=== PATIENT | female | born 1995 | race African-American/Black ===

== ENCOUNTER 2020-08-19 18:38 | Inpatient (IN) | payer OTHER ==
[~2020-08-19] VITALS: Ht 165.1 cm; Wt 63.8 kg
[2020-08-19] MEDS ORDERED: TRAZ-252 PO (19:02)
[2020-08-19] MEDS ORDERED: SERT-141 PO (19:02)
[2020-08-19] MEDS ORDERED: DULO1CAP4 PO (19:02)
[2020-08-19 19:50] LABS: BASO # 0.1 10^3/uL (0.0-0.2); BASO % 0.5 % (0.0-1.0); EOS % 0.4 % (0.0-3.0); HEMATOCRIT 42.6 % (36.0-47.0); LYMPH # 2.3 10^3/uL (1.5-5.0); LYMPH % 22.5 % (24.0-44.0); MEAN CORPUSCULAR HEMOGLOBIN 29.6 pg (27.0-33.0); MEAN CORPUSCULAR HGB CONC 32.9 g/dl (32.0-36.5); MEAN CORPUSCULAR VOLUME 90.1 fl (80.0-96.0); MONO # 0.9 10^3/uL (0.0-0.8); MONO % 8.4 % (2.0-8.0); NEUTROPHILS # 6.9 10^3/uL (1.5-8.5); NEUTROPHILS % 67.9 % (36.0-66.0); PLATELET COUNT, AUTOMATED 233 10^3/uL (150-450); RED BLOOD COUNT 4.73 10^6/uL (4.00-5.40); WHITE BLOOD COUNT 10.2 10^3/uL (4.0-10.0)
[2020-08-19 20:20] LABS: HCG, SERUM QUALITATIVE NEGATIVE (NEGATIVE)
[2020-08-19 20:54] LABS: AMPHETAMINES LEVEL URINE NEGATIVE (NEGATIVE); BARBITURATES URINE NEGATIVE (NEGATIVE); BENZODIAZEPINES URINE NEGATIVE (NEGATIVE); CANNABINOIDS URINE POSITIVE (NEGATIVE); COCAINE METABOLITE URINE NEGATIVE (NEGATIVE); METHADONE URINE NEGATIVE (NEGATIVE); OPIATES URINE NEGATIVE (NEGATIVE); PHENCYCLIDINE URINE NEGATIVE (NEGATIVE)
[2020-08-19 20:55] LABS: ACETAMINOPHEN LEVEL < 2.0 UG/ML (10.0-30.0); ALBUMIN 4.5 GM/DL (3.2-5.2); ALT/SGPT 18 U/L (12-78); BILIRUBIN,DIRECT 0.2 MG/DL (0.0-0.2); BILIRUBIN,TOTAL 0.5 MG/DL (0.2-1.0); BLOOD UREA NITROGEN 10 MG/DL (7-18); CALCIUM LEVEL 9.8 MG/DL (8.5-10.1); CARBON DIOXIDE LEVEL 25 MEQ/L (21-32); CHLORIDE LEVEL 107 MEQ/L (98-107); CPK CREATINE PHOSPHOKINASE 172 U/L (26-192); CREATININE FOR GFR 0.83 MG/DL (0.55-1.30); ETHYL ALCOHOL (ETHANOL) < 0.003 % (0.000-0.010); GLOMERULAR FILTRATION RATE > 60.0 (>60); GLUCOSE, FASTING 85 MG/DL (70-100); POTASSIUM SERUM 3.8 MEQ/L (3.5-5.1); SALICYLATE LEVEL < 1.7 MG/DL (5.0-30.0); SODIUM LEVEL 139 MEQ/L (136-145); THYROID STIMULATING HORMONE 0.486 uIU/ML (0.358-3.740); TOTAL PROTEIN 8.3 GM/DL (6.4-8.2)
[2020-08-19 21:44] LABS: RSV AMPLIFICATION NEGATIVE (NEGATIVE)
[2020-08-20] MEDS ORDERED: MULTCHW12 PO (03:41)
[2020-08-20] MEDS ORDERED: DULO1CAP4 PO (03:41)
[2020-08-20] MEDS ORDERED: TRAZ-186 PO (03:41)
[2020-08-20] MEDS ORDERED: ACETAMINOPHEN TAB 650MG DOSE (2X325MG) PO PRN (04:05)
[2020-08-20] MEDS ORDERED: MAALOX 30 ML SUSP *UDC PO PRN (04:05)
[2020-08-20] MEDS ORDERED: MOM 30ML SUSPENSION UDC PO PRN (04:05)
--- NOTE | 2020-08-20 04:20 | ECGEPIP ---
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
[2020-08-20 05:32] VITALS: BP 122/78
--- NOTE | 2020-08-20 13:32 | HPEPDOC ---
General Date of Admission August 20, 2020 at 04:03 Date of Service: August 20, 2020 Chief Complaint The patient is a 24-year-old female admitted with a reason for visit of Unspecified Depressive Do. 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 She had overdosed on Duloxetine DR . Took 15 capsules. She has had several deaths in the family recently which has been making her very depressed over the last few days. u tox positive for marijuana. I am seeing the patient for medical history and physical. Patient complains of mild abdominal cramps. Has not had a bowel movement in 2 days. Home Medications Scheduled Duloxetine Hcl (Duloxetine HCl) 20 Mg Capsule.dr, 20 MG PO BID, (Reported) Folic Acid/Multivit-Min/Lutein (Multi-Vitamin Gummies) 1 Each Tab.chew, 2 CHW PO DAILY, (Reported) Scheduled PRN Trazodone HCl (Trazodone HCl) 50 Mg Tablet, 50 MG PO QHS PRN for INSOMNIA, (Reported) Allergies Coded Allergies: Sulfa (Sulfonamide Antibiotics) (Verified Allergy, Intermediate, Hives, 08/19/20) Uncoded Allergies: G6PD (Allergy, Unknown, 08/19/20) Past Medical History Medical History depression anxiety PTSD back pain Scoliosis Adjustment disorder Family History Significant Family History: Cancer, Diabetes, Hypertension Social History * Smoker: Denies Alcohol: Denies Drugs: denies A-FIB/CHADSVASC A-FIB History Current/History of A-Fib/PAF?: No Review of Systems Constitutional: Denies: Chills, Fever, Night Sweats Eyes: Denies: Pain, Vision change ENT: Denies: Head Aches, Ear Pain, Dysphagia Skin: Denies: Rash, Lesions, Breakdown Pulmonary: Denies: Dyspnea, Cough Cardiovascular: Denies: Chest Pain, Palpitations, Orthopnea, Paroxysmal Noc. Dyspnea, Lt Headedness Gastrointestinal: Reports: Abdominal Pain, Constipation Genitourinary: Denies: Dysuria, Frequency, Incontinence, Retention Hematologic: Denies: Bruising, Bleeding Excessively Physical Examination General Exam: Positive: Alert, Cooperative, No Acute Distress Eye Exam: Positive: PERRLA, Conjunctiva & lids normal, EOMI; Negative: Sclera icteric ENT Exam: Positive: Atraumatic, Mucous membr. moist/pink, Pharynx Normal Neck Exam: Positive: Supple; Negative: JVD, thyromegaly Chest Exam: Positive: Clear to auscultation, Normal air movement Heart Exam: Positive: Rate Normal, Regular Rhythm, Normal S1, Normal S2; Negative: Murmurs, Rubs Abdomen Exam: Positive: Normal bowel sounds, Soft; Negative: Tenderness, Hepatospenomegaly Vital Signs Vital Signs Date Time Temp Pulse Resp B/P (MAP) Pulse Ox O2 Delivery O2 Flow Rate FiO2 08/20/20 05:32 97.7 63 16 122/78 (93) 99 Room Air Laboratory Data Labs 24H Laboratory Tests 2 08/19/20 19:34: Immature Granulocyte % (Auto) 0.3, Neutrophils (%) (Auto) 67.9H, Lymphocytes (%) (Auto) 22.5L, Monocytes (%) (Auto) 8.4H, Eosinophils (%) (Auto) 0.4, Basophils (%) (Auto) 0.5, Neutrophils # (Auto) 6.9, Lymphocytes # (Auto) 2.3, Monocytes # (Auto) 0.9H, Eosinophils # (Auto) 0.0, Basophils # (Auto) 0.1, Nucleated Red Blood Cells % (auto) 0.0, Anion Gap 7L, Glomerular Filtration Rate > 60.0, Calcium Level 9.8, Total Bilirubin 0.5, Direct Bilirubin 0.2, Aspartate Amino Transf (AST/SGOT) 16, Alanine Aminotransferase (ALT/SGPT) 18, Alkaline Phosphatase 75, Total Creatine Kinase 172, Total Protein 8.3H, Albumin 4.5, Albumin/Globulin Ratio 1.2, Thyroid Stimulating Hormone (TSH) 0.486, Human Chorionic Gonadotropin, Qual NEGATIVE, Salicylates Level < 1.7L, Urine Opiates Screen NEGATIVE, Urine Methadone Screen NEGATIVE, Acetaminophen Level < 2.0L, Urine Barbiturates Screen NEGATIVE, Urine Phencyclidine Screen NEGATIVE, Urine Amphetamines Screen NEGATIVE, Urine Benzodiazepines Screen NEGATIVE, Urine Cocaine Metabolite Screen NEGATIVE, Urine Cannabinoids Screen POSITIVEH, Ethyl Alcohol Level < 0.003 08/19/20 19:37: Bedside Glucose (Misc Panel) 87 08/19/20 20:59: Coronavirus (COVID-19)(PCR) NEGATIVE, Influenza Type A (RT-PCR) NEGATIVE, I nfluenza Type B (RT-PCR) NEGATIVE, Respiratory Syncytial Virus (PCR) NEGATIVE CBC/BMP Laboratory Tests 08/19/20 19:34 Assessment/Plan 24 year old female admitted to [facility] for unspecified depression. u tox positive for marijuana. I am seeing the patient for medical history and physical. Depression with suicidal gesture as per psychiatry Abdominal cramps likely related to constipation has tylenol and MOM orderd. She had refused it. Plan / VTE VTE Prophylaxis Ordered?: No HASEEB WARNER MD August 20, 2020 13:32
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
[2020-08-20] MEDS ORDERED: hydrOXYzine 50 MG TAB PO PRN (16:45)
[2020-08-20 17:40] VITALS: BP 116/61
[2020-08-20] MEDS: PRAZOSIN 1 MG CAP PO SCH (21:24)
[2020-08-21 06:46] VITALS: BP 119/57
[2020-08-21] MEDS ORDERED: DULoxetine 20 MG CAP (CYMBALTA) PO SCH (09:00)
[2020-08-21 17:52] VITALS: BP 115/64
--- NOTE | 2020-08-21 20:30 | MHIPNPDOC ---
[facility] Progress Note Progress Note DATE OF SERVICE: 08/21/20 HISTORY: Asper previous records: "Patient is a 24 -year-old , female, who reports taking an overdose of 15 Cymbalta as a suicide attempt. She reports being very depressed over grief of several family members over the course of a year. She reports having nightmares of seeing her family members. Per ED Report: Pt is [employer] x 4 years, 1 non-combat deployment to [place], admits to taking about "10-15 of my depression medications" earlier tonight with intention of harming self. Pt is quite, guarded, fair eye contact, admits to feeling "very depressed" for past few days. Pt reports she has had several recent deaths in the family including her Uncle and her Grandmother "who raised me". Pt adds "alot of family stress back home right now", denies any other stressors. Pt reports she took pills and then called family back home who then contacted [facility] M.P.'s. Pt denies prior attempts or psych admissions, admits to hx of PTSD but does not elaborate, denies HI/AH/VH, denies any substance abuse issues. PT denies any family hx of suicide, reports "PTSD" in the family." VITAL SIGNS: See below. NEW TEST RESULTS: See below CURRENT MEDICATIONS: See below. MENTAL STATUS EXAMINATION: General Appearance: well groomed, appears stated age, hospital scrubs/clothing Build: average Demeanor: withdrawn, depressed Eye Contact: fair Activity: slowed, depressed Behavior: cooperative, withdrawn Speech: low in volume Mood: depressed, anxious Affect: flat Thought Process: logical/linear Thought Content (Delusions): none reported Thought Content (Other): reports having nightmares about the members of her family Thought Content (Aggressive): none reported Perception (Hallucinations): denies Cognition (Impairment of): none reported Cognition(Intelligence Est.): average Oriented: Awake, Alert, Oriented times three Insight: fair Judgment: Fair Psychosis: Denies Diagnoses Major Depressive Disorder, Single Episode, Severe S/P Suicide Attempt by Overdose ASSESSMENT: Will increase Cymbalta to 20 mgs PO BID. She is experiencing a complicated bereavement, she has been traumatized by this events ( losing family members), she came back recently from [place] where her family resides and she says that going there has affected her a lot. She reports trying to avoid places or conversations about this subject because is too painful. Will continue to monitor MANAGEMENT PLAN: As above TIME SPENT: 20 minutes. Vital Signs Vital Signs Date Time Temp Pulse Resp B/P (MAP) Pulse Ox O2 Delivery O2 Flow Rate FiO2 08/21/20 06:46 99.5 79 16 119/57 (77) 99 Room Air Current Medications Current Medications Medications (Trade) Dose Ordered Sig/Emmie Route PRN Reason Start Time Stop Time Status Last Admin Dose Admin Acetaminophen (Tylenol Tab) 650 mg Q6HP PRN PO HEADACHE or DISCOMFORT 08/20/20 04:05 Al Hydrox/Mg Hydrox/Simethicone (Mylanta) 30 ml Q4HP PRN PO HEARTBURN/INDIGESTION 08/20/20 04:05 Duloxetine HCl (Cymbalta) 20 mg DAILY PO 08/21/20 09:00 08/21/20 09:15 Home Med (Med Rec Complete!) ASDIRECTED XX 08/20/20 03:45 08/20/20 03:42 DC Hydroxyzine HCl (Atarax) 50 mg Q6H PRN PO ANXIETY 08/20/20 16:45 Magnesium Hydroxide (Milk Of Magnesia) 30 ml DAILYPRN PRN PO CONSTIPATION 08/20/20 04:05 Prazosin HCl (Minipress) 2 mg QHS PO 08/20/20 21:00 08/20/20 21:24 Trazodone HCl (Desyrel) 50 mg QHSP PRN PO INSOMNIA 08/20/20 04:05 Allergies Coded Allergies: Sulfa (Sulfonamide Antibiotics) (Verified Allergy, Intermediate, Hives, 08/19/20) Uncoded Allergies: G6PD (Allergy, Unknown, 08/19/20) SHAILESH MULLER MD August 21, 2020 14:07
[2020-08-21] MEDS: PRAZOSIN 1 MG CAP PO SCH (20:44)
[2020-08-21] MEDS: traZODone 50 MG TAB PO PRN (20:44)
[2020-08-21] MEDS: DULoxetine 20 MG CAP (CYMBALTA) PO SCH (20:45)
[2020-08-22 06:14] VITALS: BP 109/69
[2020-08-22] MEDS: DULoxetine 20 MG CAP (CYMBALTA) PO SCH ×2 (08:29→20:25)
--- NOTE | 2020-08-22 19:11 | MHIPNPDOC ---
[facility] Progress Note Progress Note DATE OF SERVICE: 08/22/20 HISTORY: Asper previous records: "Patient is a 24 -year-old , female, who reports taking an overdose of 15 Cymbalta as a suicide attempt. She reports being very depressed over grief of several family members over the course of a year. She reports having nightmares of seeing her family members. 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 Pt is quite, guarded, fair eye contact, admits to feeling "very depressed" for past few days. Pt reports she has had several recent deaths in the family including her Uncle and her Grandmother "who raised me". Pt adds "alot of family stress back home right now", denies any other stressors. Pt reports she took pills and then called family back home who then contacted FD M.P.'s. Pt denies prior attempts or psych admissions, admits to hx of PTSD but does not elaborate, denies HI/AH/VH, denies any substance abuse issues. PT denies any family hx of suicide, reports "PTSD" in the family." VITAL SIGNS: See below. NEW TEST RESULTS: See below CURRENT MEDICATIONS: See below. MENTAL STATUS EXAMINATION: General Appearance: well groomed, appears stated age, hospital scrubs/clothing Build: average Demeanor: Less withdrawn, more interactive Eye Contact: fair Activity: Still a little bit slow but improving Behavior: cooperative, interacting with this telegraphic typewriter repairer, establishing rapport Speech: low in volume Mood: anxious Affect: Congruent with mood, a little bit more reactive, smiles at times Thought Process: logical/linear Thought Content (Delusions): none reported Thought Content (Other): She still reports having nightmares about the members of her family Thought Content (Aggressive): none reported Perception (Hallucinations): denies Cognition (Impairment of): none reported Cognition(Intelligence Est.): average Oriented: Awake, Alert, Oriented times three Insight: fair Judgment: Fair Psychosis: Denies Diagnoses Major Depressive Disorder, Single Episode, Severe S/P Suicide Attempt by Overdose ASSESSMENT: We will continue with the same treatment plan, she is responding to Cymbalta 20 mg twice a day which is the dose that she was taking before she attempted suicide with the same medication. She has expressed guilty thoughts and feelings about his attempted suicide and she says she will never try to do this again. She seems to be determined mind to overcome her psychiatric problem. MANAGEMENT PLAN: As above TIME SPENT: 20 minutes. Vital Signs Vital Signs Date Time Temp Pulse Resp B/P (MAP) Pulse Ox O2 Delivery O2 Flow Rate FiO2 08/22/20 06:14 97.9 59 18 109/69 (82) 99 Room Air Current Medications Current Medications Medications (Trade) Dose Ordered Sig/Emmie Route PRN Reason Start Time Stop Time Status Last Admin Dose Admin Acetaminophen (Tylenol Tab) 650 mg Q6HP PRN PO HEADACHE or DISCOMFORT 08/20/20 04:05 Al Hydrox/Mg Hydrox/Simethicone (Mylanta) 30 ml Q4HP PRN PO HEARTBURN/INDIGESTION 08/20/20 04:05 Duloxetine HCl (Cymbalta) 20 mg BID PO 08/21/20 21:00 08/22/20 08:29 Duloxetine HCl (Cymbalta) 20 mg DAILY PO 08/21/20 09:00 08/21/20 14:17 DC 08/21/20 09:15 Home Med (Med Rec Complete!) ASDIRECTED XX 08/20/20 03:45 08/20/20 03:42 DC Hydroxyzine HCl (Atarax) 50 mg Q6H PRN PO ANXIETY 08/20/20 16:45 Magnesium Hydroxide (Milk Of Magnesia) 30 ml DAILYPRN PRN PO CONSTIPATION 08/20/20 04:05 Prazosin HCl (Minipress) 2 mg QHS PO 08/20/20 21:00 08/21/20 20:44 Trazodone HCl (Desyrel) 50 mg QHSP PRN PO INSOMNIA 08/20/20 04:05 08/21/20 20:44 Allergies Coded Allergies: Sulfa (Sulfonamide Antibiotics) (Verified Allergy, Intermediate, Hives, 08/19/20) Uncoded Allergies: G6PD (Allergy, Unknown, 08/19/20) SHAILESH MULLER MD August 22, 2020 16:55
[2020-08-22] MEDS: traZODone 50 MG TAB PO PRN (20:24)
[2020-08-22 20:25] VITALS: BP 109/69
[2020-08-22] MEDS: PRAZOSIN 1 MG CAP PO SCH (20:25)
[2020-08-23 06:49] VITALS: BP 103/69
[2020-08-23] MEDS: DULoxetine 20 MG CAP (CYMBALTA) PO SCH (08:07)
[2020-08-23] MEDS ORDERED: MINI1CAP PO (10:07)
[2020-08-23] MEDS ORDERED: DULO1CAP4 PO (10:07)
--- NOTE | 2020-08-23 10:15 | MHDSPDOC ---
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 She reports having nightmares of seeing her family members. Per ED Report: Pt is [employer] x 4 years, 1 non-combat deployment to [place], admits to taking about "10-15 of my depression medications" earlier tonight with intention of harming self. Pt is quite, guarded, fair eye contact, admits to feeling "very depressed" for past few days. Pt reports she has had several recent deaths in the family including her Uncle and her Grandmother "who raised me". Pt adds "alot of family stress back home right now", denies any other stressors. Pt reports she took pills and then called family back home who then contacted [facility]. Pt denies prior attempts or psych admissions, admits to hx of PTSD but does not elaborate, denies HI/AH/VH, denies any substance abuse issues. PT denies any family hx of suicide, reports "PTSD" in the family. VITALS: See below CONSULTANTS INVOLVED: : See H + P by Hospitalist TREATMENT AND PROGRESS ON THE UNIT : Patient was admitted to the [facility] on a 39 legal status he was afforded the following treatment modalities: 1) Individual Therapy 2) Group Therapy 3) Medication Management 4) Milieu Therapy 5) Safe Environment HOSPITAL COURSE: Patient was admitted to [facility] on a 9.39 legal status. She had reported that she was having increased depression and anxiety due to the loss of another family member. She has lost 3 family members over the past year. She reported that she had overdosed on 15 cymbalta as a suicide attempt. Patient was agreeable to restarting Cymbalta. This was increased to BID over the weekend. She had also complained of nightmares and she was Rx'd prazosin for this. Today she was interviewed, She presented with bright mood and affect. She reports a decrease in depression, anxiety, denies nightmares, reports that she is sleeping well. "I am in a much better head space than when I came in." She states that she has support persons that she can utilize (mother, cousin, friends and [facility]) Her plan moving forward is to write (journal) and to [place]. She had not been using any coping skills due to her bereavement. DISCHARGE ASSESSMENT: In today's interview, patient is alert and oriented, pts dress is appropriate. Hygiene and grooming is well-kempt. Smiles on approach and is pleasant and engaged in the interview. Denies depression and anxiety. Denies suicidal and homicidal ideation, planning or intent. Denies and is not observed with lena, psychotic symptoms of delusions, bizarre thinking, obsessions, paranoia, ruminations illogical thoughts, flight of ideas or having poor insight and judgment. Patient has normal mentation, declines further hospitalization on a voluntary status and meets criteria for discharge today. 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 Denies SI. Denies any psychotic symptoms Description of abnormal or psychotic thoughts: no AH/VH Judgment: Good Insight: Good Orientation: Awake, Alert and oriented X3 Recent and remote memory: Intact Attention span and concentration: Average Language: Intact Fund of knowledge: Average Mood: Euthymic Affect: Full. MEDICATIONS ON DISCHARGE: See Discharge Reconciliation PLAN/FOLLOWUP ARRANGEMENTS: Patient being discharged to [facility] and following up with [facility] The amount of time spent in the coordination of care for this patient was approximately 25 minutes. ETOH/Disorder Med Rx ETOH/DRUG DISORDER RX: N/A Vital Signs/I&Os Vital Signs Date Time Temp Pulse Resp B/P (MAP) Pulse Ox O2 Delivery O2 Flow Rate FiO2 08/23/20 06:49 98.9 89 20 103/69 (80) 89 Room Air Medications Scheduled Duloxetine Hcl (Duloxetine HCl) 20 Mg Capsule., 20 MG PO BID for Depression, #14 Folic Acid/Multivit-Min/Lutein (Multi-Vitamin Gummies) 1 Each Tab.chew, 2 CHW PO DAILY, (Reported) Prazosin HCl (Minipress) 1 Mg Capsule, 2 MG PO QHS for Nightmares, #7 Scheduled PRN Trazodone HCl (Trazodone HCl) 50 Mg Tablet, 50 MG PO QHS PRN for INSOMNIA, (Reported) Allergies Coded Allergies: Sulfa (Sulfonamide Antibiotics) (Verified Allergy, Intermediate, Hives, 08/19/20) Uncoded Allergies: G6PD (Allergy, Unknown, 08/19/20) LANCE CORONA NP August 23, 2020 10:08
== END 2020-08-23 13:25 | disposition home or self-care (01) | DRG 885 ==
LOC: M ED 18:38 → M ED INP 08-20 04:03 → M PSY 08-20 05:26
PROVIDERS: ADMIT Psychiatry & Neurology Psychiatry; ATTEND Psychiatry & Neurology Psychiatry
DX: F32.2 Major depressive disorder, single episode, severe without psychotic features (principal); T43.292A Poisoning by other antidepressants, intentional self-harm, initial encounter; R25.2 Cramp and spasm; Z79.899 Other long term (current) drug therapy; Z88.2 Allergy status to sulfonamides; Z91.048 Other nonmedicinal substance allergy status; Z20.822 Contact with and (suspected) exposure to COVID-19; Z63.4 Disappearance and death of family member

== ENCOUNTER → 2020-12-02 | Outpatient (REF) | payer OTHER ==
[~2020-12-02] MED LIST: DULO1CAP4 PO; MINI1CAP PO; MULTCHW12 PO; SERT-141 PO; TRAZ-186 PO; TRAZ-252 PO
[2020-12-02 12:07] LABS: MAGNESIUM LEVEL 2.3 MG/DL (1.8-2.4)
[2020-12-02 12:12] LABS: TOTAL 25(OH) VITAMIN D 8.7 NG/ML (30.0-100.0)
== END ==
LOC: M SFHCRHEU 10:13
PROVIDERS: ATTEND Internal Medicine
DX: M79.10 Myalgia, unspecified site (principal)
CPT/HCPCS: 36415; 82306; 82550; 82607; 83540; 83735; 84100; G0463

== ENCOUNTER → 2021-03-30 | Outpatient (REF) ==
--- NOTE | 2021-03-30 11:42 | REP ---
INDICATION: SOB/PAIN COMPARISON: None. TECHNIQUE: AP, lateral, and swimmers views. FINDINGS: Frontal view demonstrates approximately 22 degrees of levoconvex scoliosis as measured from the superior endplate of T9 to the superior endplate of L3. Normal alignment is maintained in the sagittal plane. There is no evidence for acute fracture/compression injury. IMPRESSION: Scoliosis. <Electronically signed by Howie Morton > 03/30/21 [id number]
--- NOTE | 2021-03-30 11:44 | REP ---
INDICATION: SOB/PAIN COMPARISON: None. TECHNIQUE: PA and lateral. FINDINGS: The mediastinum and cardiac silhouette are normal. The lung chapman are clear and without acute consolidation, effusion, or pneumothorax. The skeletal structures are intact and normal. IMPRESSION: No acute cardiopulmonary process. <Electronically signed by Howie Morton > 03/30/21 [id number]
--- NOTE | 2021-03-30 11:44 | REP ---
INDICATION: SOB/PAIN COMPARISON: None. TECHNIQUE: AP, lateral, coned-down views of the lumbar spine. FINDINGS: Levoconvex scoliosis is suggested. Alignment is maintained in the sagittal plane. There is no evidence for acute fracture/compression injury or subluxation. Disc spaces appear maintained. IMPRESSION: 1. Levoconvex scoliosis suggested. 2. Disc spaces are normal. <Electronically signed by Howie Morton > 03/30/21 [id number]
--- NOTE | 2021-03-30 11:45 | REP ---
INDICATION: SOB/PAIN COMPARISON: None. TECHNIQUE: AP, lateral, bilateral oblique views . FINDINGS: The osseous structures, joint spaces, and surrounding soft tissues are bilaterally symmetric and normal. No obvious arthritic/degenerative or congenital abnormalities are appreciated. No evidence for acute or obvious healed injury.. IMPRESSION: Normal bilateral hand radiograph series. <Electronically signed by Howie Morton > 03/30/21 [id number]
== END ==
LOC: M PLAIMG 10:14
PROVIDERS: ATTEND Internal Medicine
DX: M41.9 Scoliosis, unspecified (principal); M79.641 Pain in right hand; M79.642 Pain in left hand; R06.02 Shortness of breath

== ENCOUNTER 2021-04-24 21:17 | Emergency (ER) | payer OTHER ==
[~2021-04-24] VITALS: Ht 167.6 cm; Wt 56.8 kg
[2021-04-24 21:19] VITALS: BP 113/78
[2021-04-24 23:04] VITALS: O2SAT 100
[2021-04-24] MEDS ORDERED: ACETAMINOPHEN TAB 650MG DOSE (2X325MG) PO ONE (23:05)
== END 2021-04-25 00:37 | disposition home or self-care (01) ==
LOC: M ED 21:17
DX: U07.1 COVID-19 (principal); F43.10 Post-traumatic stress disorder, unspecified; K21.9 Gastro-esophageal reflux disease without esophagitis; F32.A Depression, unspecified; R00.2 Palpitations; M41.9 Scoliosis, unspecified; Z88.2 Allergy status to sulfonamides; Z79.899 Other long term (current) drug therapy